=== PATIENT | male | born 1995 | race Caucasian/White ===

== ENCOUNTER 2018-02-15 19:22 | Emergency (ER) | payer MEDICAID ==
[2018-02-15] MEDS: ONDANSETRON (ODT) 4 MG TAB ODT (20:12)
== END 2018-02-15 20:34 | disposition home or self-care (01) ==
LOC: FTE 19:22
DX: R11.2 Nausea with vomiting, unspecified (principal); F17.210 Nicotine dependence, cigarettes, uncomplicated
CPT/HCPCS: 99283; Z7502